=== PATIENT | male | born 1985 | race African-American/Black ===

== ENCOUNTER 2017-01-22 23:09 | Emergency (ER) | payer SELFPAY ==
[~2017-01-22] VITALS: Ht 170.2 cm; Wt 60.3 kg
[2017-01-22 23:07] VITALS: BP 108/69
[2017-01-22 23:47] VITALS: BP 102/51
--- NOTE | 2017-01-23 00:30 | Emergency Room Report ---
History of Present Illness General Chief Complaint: Overdose Source: Patient, EMS Present Illness HPI This is a 31-year-old male with no past medical history. He has a history of alcohol and drug abuse. He said that he smoked marijuana and spiced tonight. He was acting bizarrely at an intersection. Bystander called 911. Patient was combative and had to be restrained by booking police officer. He is calmer now. He denies suicidal thought homicidal thought. Said that this is the first time it happened to him. Allergies: Coded Allergies: No Known Allergies (Unverified , 01/22/17) Patient History Past Medical History: see triage record, old chart reviewed Past Surgical History: other Pertinent Family History: none Social History: Reports: smoking, alcohol use, drug use Immunizations: other Reviewed Nursing Documentation: PMH: Agreed, PSxH: Agreed Nursing Documentation-PMH Past Medical History: No Stated History Review of Systems Eye: Denies: eye pain, blurred vision ENT: Denies: ear pain, nose congestion, throat swelling Respiratory: Denies: cough, shortness of breath Cardiovascular: Denies: chest pain, palpitations Gastrointestinal: Denies: abdominal pain, diarrhea, nausea, vomiting Musculoskeletal: Denies: back pain, joint pain Skin: Denies: rash Neurological: Denies: headache, numbness Endocrine: Denies: increased thirst, increased urine Hematologic/Lymphatic: Denies: easy bruising All Other Systems: negative except mentioned in HPI Physical Exam Vital Signs Date Time Temp Pulse Resp B/P (MAP) Pulse Ox O2 Delivery O2 Flow Rate FiO2 01/22/17 23:02 98.4 01/22/17 23:02 75 18 108/69 100 Room Air vitals normal Sp02 EP Interpretation: reviewed, normal General Appearance: well appearing, no apparent distress, alert, other - Mild agitation Head: normocephalic, atraumatic Eyes: bilateral eye PERRL, bilateral eye EOMI ENT: hearing grossly normal, normal pharynx Neck: full range of motion, supple, no meningismus Respiratory: chest non-tender, lungs clear, normal breath sounds Cardiovascular #1: regular rate, rhythm, no murmur Gastrointestinal: normal bowel sounds, non tender, no mass, no organomegaly, no bruit, non-distended Musculoskeletal: back normal, gait/station normal, normal range of motion Psychiatric: no suicidal/homicidal ideation, other - Agitated Skin: warm/dry Medical Decision Making Diagnostic Impression: Primary Impression: Drug overdose Qualified Codes: T50.901A - Poisoning by unspecified drugs, medicaments and biological substances, accidental (unintentional), initial encounter Additional Impression: Psychosis Qualified Codes: F23 - Brief psychotic disorder ER Course Patient with drug-induced psychosis. He is much improved and calmer now. His restraints were slowly removed. He sleeping comfortably. No criteria for 5150. He's not suicidal or homicidal. This patient is a chronic risk of self injury due to poor impulse control, limited coping skills, and judgment intermittently impaired by intoxication. I believe that the available clinical evidence to suggest that these characteristics derived primarily from personality disorder and are likely very stable over time. Hospitalization would likely attenuate risk of self-harm only during halfway period, without lasting risk reduction. Serious self-harm , while possible, would likely be inadvertent, and because of impulsivity, and foreseeable. For these reasons, I do not believe hospitalization would provide meaningful reduction in risk of self-harm. Last Vital Signs Date Time Temp Pulse Resp B/P (MAP) Pulse Ox O2 Delivery O2 Flow Rate FiO2 01/22/17 23:07 98.4 75 18 108/69 100 Room Air Status: improved Disposition: HOME, SELF-CARE Condition: Stable Additional Instructions: Stop using drugs. Followup with your Dr./mental health in a week. Return if symptom worsen. KEY WHITEHEAD M.D. Jan 23, 2017 00:30
[2017-01-23 01:25] VITALS: BP 134/66
[2017-01-23 03:24] VITALS: BP 151/68
[2017-01-23 04:27] VITALS: BP 133/69
[2017-01-23 05:35] VITALS: BP 151/78
== END 2017-01-23 05:37 | disposition home or self-care (01) ==
LOC: EDBD 23:09 → EMR 01-23 01:06
DX: T50.901A Poisoning by unspecified drugs, medicaments and biological substances, accidental (unintentional), initial encounter (principal); F23 Brief psychotic disorder; X58.XXXA Exposure to other specified factors, initial encounter; Y93.9 Activity, unspecified; Y92.9 Unspecified place or not applicable; F12.90 Cannabis use, unspecified, uncomplicated; F17.200 Nicotine dependence, unspecified, uncomplicated
CPT/HCPCS: 99283